=== PATIENT | male | born 1960 | race Caucasian/White ===

== ENCOUNTER 2020-12-18 07:10 | Outpatient (CLI) | payer BC, SELFPAY ==
[2020-12-19 17:50] LABS: PSA, Ultrasensitive 85.4 ng/mL (<= 3.5)
== END 2020-12-18 07:11 | disposition home or self-care (01) ==
PROVIDERS: PCP Nurse Practitioner Family; Visit Provider Radiology Radiation Oncology
DX: C61 Malignant neoplasm of prostate (principal)
CPT/HCPCS: 36415; 84153